=== PATIENT | male | born 1965 | race Caucasian/White ===

== ENCOUNTER 2016-12-16 10:31 | Emergency (ER) | payer OTHER | END 2016-12-16 11:32 | disposition home or self-care (01) | LOC: ER 10:31 | DX: L03.316 Cellulitis of umbilicus (principal); E11.40 Type 2 diabetes mellitus with diabetic neuropathy, unspecified; E66.01 Morbid (severe) obesity due to excess calories; G89.29 Other chronic pain; Z88.6 Allergy status to analgesic agent | CPT/HCPCS: 87070; 96372; 99282-25 ==

== ENCOUNTER 2016-12-17 11:09 | Emergency (ER) | payer OTHER | END 2016-12-17 12:15 | disposition home or self-care (01) | LOC: ER 11:09 | DX: L03.316 Cellulitis of umbilicus (principal); E11.9 Type 2 diabetes mellitus without complications; I10 Essential (primary) hypertension; Z94.4 Liver transplant status; Z94.0 Kidney transplant status; Z88.6 Allergy status to analgesic agent; Z88.8 Allergy status to other drugs, medicaments and biological substances | CPT/HCPCS: 99282 ==